=== PATIENT | female | born 1970 | race Caucasian/White ===

== ENCOUNTER 2017-12-14 09:57 | Emergency (ER) | payer OTHER, BC ==
[~2017-12-14] VITALS: Ht 157.5 cm; Wt 84.0 kg
[2017-12-14 10:17] VITALS: BP 149/90; PULSE 74; RESP 20; TEMP 98.6; O2SAT 98
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
[2017-12-14] MEDS ORDERED: METHOCARBAMOL 500 MG TAB PO ONE (12:00)
[2017-12-14] MEDS ORDERED: IBUPROFEN 800 MG TAB PO ONE (12:00)
[2017-12-14] MEDS ORDERED: ROBA500T PO (12:23)
[2017-12-14] MEDS ORDERED: IBUP1TAB7 PO (12:23)
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
== END 2017-12-14 13:29 | disposition home or self-care (01) ==
LOC: NEPD 09:57
DX: M54.2 Cervicalgia (principal); M54.5 Low back pain
CPT/HCPCS: 72050; 72100; 99284; L0150